=== PATIENT | female | born 1940 | race Two or more races ===

== ENCOUNTER 2020-11-29 14:46 | Emergency (ER) | payer BC ==
[~2020-11-29] VITALS: Ht 160 cm; Wt 70.0 kg
[~2020-11-29 14:46] MED LIST: AMLO1CAP56 PO; CHOL400T15 PO; GABA-533 PO; GLIM1TAB PO; METF-416 PO; SIMV-43 PO
[2020-11-29 16:05] LABS: BASOPHILS % 0.8 % (0.0-2.0); EOSINOPHILS % 1.4 % (0.0-5.0); HEMATOCRIT. 32.3 % (36.0-48.0); HEMOGLOBIN. 11.5 g/dL (12.0-16.0); LYMPHOCYTES % 26.6 % (20.0-50.0); MEAN CORPUSCULAR HEMOGLOBIN 33.5 pg (28.0-32.0); MEAN CORPUSCULAR VOLUME 93.8 fL (81.0-99.0); MEAN PLATELET VOLUME 8.4 fl (7.4-10.4); MONOCYTES % 6.6 % (2.0-8.0); NEUTROPHILS % 64.6 % (40.0-76.0); PLATELET 250 x1000/uL (130-400); RED BLOOD CELL COUNT 3.45 mill/uL (4.2-5.4); RED CELL DISTRIBUTION WIDTH 12.7 % (11.6-14.6)
[2020-11-29 16:14] LABS: PROTHROMBIN TIME 11.1 sec (9.6-11.0)
[2020-11-29 16:17] LABS: CHLORIDE 106 mEq/L (98-107)
[2020-11-29 17:34] LABS: CLARITY URINE CLOUDY (CLEAR); COLOR URINE YELLOW (YELLOW); KETONES URINE NEGATIVE (NEGATIVE); LEUKOCYTE ESTERASE URINE 2+ (NEGATIVE); NITRITE URINE NEGATIVE (NEGATIVE); OCCULT BLOOD URINE NEGATIVE (NEGATIVE); PROTEIN URINE NEGATIVE (NEGATIVE); SPECIFIC GRAVITY URINE 1.009 (1.005-1.030); UROBILINOGEN URINE 0.2 E.U./dL (0.2-1.0)
[2020-11-29] MEDS ORDERED: IOHEXOL-300 100 ML BOTTLE ONE (19:26)
[2020-11-29 22:00] VITALS: BP 141/70
[2020-11-29] MEDS ORDERED: CEPH500T MT (22:03)
== END 2020-11-29 22:29 | disposition home or self-care (01) ==
LOC: ER 14:46
DX: R10.13 Epigastric pain (principal); K57.92 Diverticulitis of intestine, part unspecified, without perforation or abscess without bleeding; K40.20 Bilateral inguinal hernia, without obstruction or gangrene, not specified as recurrent; E11.65 Type 2 diabetes mellitus with hyperglycemia; I10 Essential (primary) hypertension; D64.9 Anemia, unspecified; R79.89 Other specified abnormal findings of blood chemistry; D68.9 Coagulation defect, unspecified; R74.8 Abnormal levels of other serum enzymes; Z79.84 Long term (current) use of oral hypoglycemic drugs; Z79.899 Other long term (current) drug therapy
CPT/HCPCS: 36415; 71045; 74177; 76705; 80053; 81003; 82962; 83690; 83880; 84484; 85025; 85610; 93005; 99285; Q9967

== ENCOUNTER 2021-11-24 15:50 | Emergency (ER) | payer SELFPAY ==
[~2021-11-24] VITALS: Ht 162.6 cm; Wt 64.0 kg
[~2021-11-24 15:50] MED LIST changes: +CEPH500T MT
[2021-11-24 16:31] VITALS: BP 161/77
== END 2021-11-24 20:11 | disposition left against medical advice (07) ==
LOC: ER 15:50
DX: Z53.21 Procedure and treatment not carried out due to patient leaving prior to being seen by health care provider (principal)

== ENCOUNTER 2023-05-12 16:18 | Emergency (ER) | payer SELFPAY ==
[~2023-05-12] VITALS: Ht 160 cm; Wt 64.0 kg
[~2023-05-12 16:18] MED LIST changes: -GABA-533 PO; +GABA-534 PO
[2023-05-12 16:21] VITALS: O2SAT 100
[2023-05-12] MEDS ORDERED: MORPHINE SULFATE 4 MG/ML CPJ (NOT FOR IM USE) IV STA (16:38)
[2023-05-12] MEDS ORDERED: ONDANSETRON HCL 4MG/2ML INJ IV STA (16:38)
[2023-05-12] MEDS ORDERED: SODIUM CHLORIDE 0.9% 1,000 ML IV ONE (16:45)
[2023-05-12] MEDS ORDERED: KETOROLAC 15MG/ML VIAL IV ONE (16:45)
[2023-05-12 17:34] LABS: CLARITY URINE CLEAR (CLEAR); COLOR URINE YELLOW (YELLOW); GLUCOSE URINE 3+ (NEGATIVE); KETONES URINE NEGATIVE (NEGATIVE); LEUKOCYTE ESTERASE URINE NEGATIVE (NEGATIVE); NITRITE URINE NEGATIVE (NEGATIVE); OCCULT BLOOD URINE NEGATIVE (NEGATIVE); PH URINE 5.5 (4.5-8.0); PROTEIN URINE NEGATIVE (NEGATIVE); SPECIFIC GRAVITY URINE 1.029 (1.005-1.030); UROBILINOGEN URINE 0.2 E.U./dL (0.2-1.0)
[2023-05-12 17:50] LABS: BASOPHILS % 1.1 % (0.0-2.0); EOSINOPHILS % 2.7 % (0.0-5.0); HEMATOCRIT. 36.3 % (36.0-48.0); HEMOGLOBIN. 11.8 g/dL (12.0-16.0); LYMPHOCYTES % 31.7 % (20.0-50.0); MEAN CORPUSCULAR HEMOGLOBIN 30.9 pg (28.0-32.0); MEAN CORPUSCULAR HGB CONC 32.5 g/dL (31.0-37.0); MEAN CORPUSCULAR VOLUME 95.2 fL (81.0-99.0); MEAN PLATELET VOLUME 8.8 fl (7.4-10.4); MONOCYTES % 9.6 % (2.0-8.0); NEUTROPHILS % 54.9 % (40.0-76.0); PLATELET 199 x1000/uL (130-400); RED BLOOD CELL COUNT 3.81 mill/uL (4.2-5.4); RED CELL DISTRIBUTION WIDTH 12.8 % (11.6-14.6); WHITE BLOOD COUNT 3.9 x1000/uL (4.5-11.0)
[2023-05-12 17:56] LABS: BACTERIA URINE TRACE; RBC URINE 0-2 /hpf (0-2); SQUAMOUS EPITHELIAL CELL URINE 1+ /lpf (RARE/1+); WBC URINE 0-2 /hpf (0-2)
[2023-05-12 17:59] LABS: PROTHROMBIN TIME 10.9 sec (9.6-11.0)
[2023-05-12 18:09] LABS: ALANINE AMINOTRANSFERASE 11 IU/L (10-49); ALBUMIN 3.8 g/dL (3.2-4.8); ASPARTATE AMINOTRANSFERASE 16 IU/L (<34); BETA HYDROXYBUTYRATE 0.2 mMol/L (0.0-0.3); BILIRUBIN TOTAL 0.6 mg/dL (0.1-1.0); CALCIUM 9.2 mg/dL (8.7-10.4); CARBON DIOXIDE 20 mEq/L (21-32); CHLORIDE 104 mEq/L (98-107); CREATININE 1.1 mg/dL (0.6-1.0); GLUCOSE 293 mg/dL (70-105); PHOSPHORUS 3.5 mg/dL (2.5-4.9); POTASSIUM 4.1 mEq/L (3.5-5.1); PROTEIN TOTAL 6.5 g/dL (6.0-8.3); SODIUM 135 mEq/L (136-145); UREA NITROGEN BLOOD 26 mg/dL (9-23)
[2023-05-12 20:00] VITALS: BP 160/89; PULSE 82; RESP 16; TEMP 97.7
== END 2023-05-12 20:25 | disposition home or self-care (01) ==
LOC: ER 16:18
DX: R10.9 Unspecified abdominal pain (principal); E11.65 Type 2 diabetes mellitus with hyperglycemia; I10 Essential (primary) hypertension
CPT/HCPCS: 99285; 74176; 96374; 71045; 96361; 80053; 81003; 82010; 83690; 83735; 84100; 85025; 85610; 36415; J1885; J7030

== ENCOUNTER 2024-05-24 14:44 | Emergency (ER) | payer SELFPAY ==
[~2024-05-24] VITALS: Ht 165.1 cm; Wt 68.0 kg
[~2024-05-24 14:44] MED LIST changes: -GLIM1TAB PO; +GLIM1TAB55 PO
[2024-05-24 15:08] VITALS: O2SAT 99
[2024-05-24 15:30] VITALS: BP 199/104; PULSE 75; RESP 18; O2SAT 99
[2024-05-24 17:39] VITALS: TEMP 98.3
[2024-05-24] MEDS: ACETAMINOPHEN 500MG TABLET PO ONE (17:39)
[2024-05-24] MEDS ORDERED: LIDO700A15 TP (18:41)
[2024-05-24] MEDS ORDERED: CEPH500T MT (18:41)
[2024-05-24] MEDS ORDERED: TOPUD MT (18:41)
== END 2024-05-24 18:53 | disposition home or self-care (01) ==
LOC: ER 14:44
DX: S80.01XA Contusion of right knee, initial encounter (principal); E11.9 Type 2 diabetes mellitus without complications; I10 Essential (primary) hypertension; Z79.84 Long term (current) use of oral hypoglycemic drugs; Z79.899 Other long term (current) drug therapy; Z90.710 Acquired absence of both cervix and uterus; X58.XXXA Exposure to other specified factors, initial encounter; Y93.01 Activity, walking, marching and hiking; Y92.89 Other specified places as the place of occurrence of the external cause; Y99.8 Other external cause status
CPT/HCPCS: 73562; 99283